=== PATIENT | male | born 1965 | race Two or more races ===

== ENCOUNTER → 2018-02-12 | Day surgery (SDC) | payer OTHER | END | disposition home or self-care (01) | LOC: ADM 01-31 14:00 → AMB-ENDOS 06:55 | DX: D12.2 Benign neoplasm of ascending colon (principal) ==

== ENCOUNTER 2021-03-08 06:35 | Day surgery (SDC) | payer OTHER | END 2021-03-08 09:45 | disposition home or self-care (01) | LOC: AMB-ENDOS 06:35 | PROVIDERS: ATTEND Surgery | DX: K62.89 Other specified diseases of anus and rectum (principal); Z20.822 Contact with and (suspected) exposure to COVID-19 ==